=== PATIENT | male | born 1980 | race Caucasian/White ===

== ENCOUNTER → 2022-07-16 | Emergency (ER) | payer OTHER ==
[~2022-07-16] VITALS: Ht 162.6 cm; Wt 58.5 kg
--- NOTE | 2022-07-16 05:35 | NUR ---
[id number] C/O SEIZURES X 1 MIN. LAST SEIZURE WAS 3-4 MONTHS AGO. PATIENT IS AAOX4. ABLE TO MAKE NEEDS KNOWN. ATTACHED TO MONITOR. -SOB, -CP. PATIENT HAS PERIPHERAL LINE ON LEFT AC G18. PLACED ON SEIZURE PRECAUTION. VITALS CHECKED.
--- NOTE | 2022-07-16 06:17 | NUR ---
SEEN BY DR NOE AT BEDSIDE.
[2022-07-16 06:19] LABS: BASOPHILS # (AUTO) 0.1 K/uL (0.0-0.2); BASOPHILS % (AUTO) 0.6 % (0.0-2.0); EOSINOPHILS % (AUTO) 4.4 % (0.0-6.0); HEMATOCRIT 49 % (39-51); HEMOGLOBIN 16.5 g/dL (13.5-17.5); LYMPHOCYTES # (AUTO) 1.8 K/uL (0.8-4.8); LYMPHOCYTES % (AUTO) 18.9 % (20.0-44.0); MEAN CORPUSCULAR HGB CONC 34 g/dl (31.0-36.0); MEAN CORPUSCULAR VOLUME 91 fL (80-96); MONOCYTES # (AUTO) 0.5 K/uL (0.1-1.30); MONOCYTES % (AUTO) 5.6 % (2.0-12.0); NEUTROPHILS # (AUTO) 6.8 K/uL (1.8-8.9); NEUTROPHILS % (AUTO) 70.5 % (43.0-81.0); PLATELET COUNT (AUTO) 230 K/uL (150-450); RED BLOOD CELL COUNT(AUTO) 5.33 MIL/uL (4.5-6.0); WHITE BLOOD COUNT (AUTO) 9.7 K/uL (4.3-11.0)
[2022-07-16 06:45] LABS: ALANINE AMINOTRANSFERASE 18 U/L (12-78); ALCOHOL, BLOOD < 3 mg/dL (0-0); ALKALINE PHOSPHATASE 69 U/L (46-116); ASPARTATE AMINOTRANSFERASE 16 U/L (15-37); BILIRUBIN,DIRECT 0.2 mg/dL (0.0-0.2); BILIRUBIN,TOTAL 0.6 mg/dL (0.2-1.0); CALCIUM, SERUM 8.9 mg/dL (8.5-10.1); CARBON DIOXIDE 28 mmol/L (21-32); GLUCOSE 111 mg/dL (74-106); POTASSIUM 3.7 mmol/L (3.5-5.1); SODIUM SERUM 135 mmol/L (136-145); TOTAL PROTEIN, SERUM 7.6 g/dL (6.4-8.2); UREA NITROGEN, BLOOD 13 mg/dL (7-18)
--- NOTE | 2022-07-16 07:04 | NUR ---
urine specimen sent to lab
[2022-07-16 08:10] VITALS: BP 132/76
[2022-07-16 09:15] LABS: CHLORIDE 102 mmol/L (98-107)
== END | disposition home or self-care (01) ==
LOC: ER 05:25
DX: G40.909 Epilepsy, unspecified, not intractable, without status epilepticus (principal); J45.909 Unspecified asthma, uncomplicated
CPT/HCPCS: 36415; 71045-TC; 80048-TC; 80076-TC; 85025-TC; 85730-TC; G0480